=== PATIENT | male | born 1990 | race Caucasian/White ===

== ENCOUNTER 2016-12-02 20:21 | Emergency (ER) | payer OTHER ==
[~2016-12-02] VITALS: Ht 182.9 cm; Wt 110.0 kg
[2016-12-02 20:43] VITALS: Ht 182.9 cm; Wt 110.0 kg
[2016-12-02] MEDS ORDERED: KETOROLAC 60 MG INJ IM STA (22:25)
--- NOTE | 2016-12-02 22:25 | ERD ---
ER Documentation Chief Complaint Date/Time DATE: 12/02/16 TIME: 22:15 Chief Complaint walked into er co [facility] earlier today co lower back pain HPI 26 y/o male(accompanied by his friend) )who presents to ED for lower back pain that radiates to right lower extremity. Stated that he fell from a ladder about 5 feet at around 7 am that "landed on my back." Pain was described as sharp that radiates to right lower extremity. Denies headache, head injury, loss of consciousness, dizziness, blurry vision, changes in vision, photophobia, facial pain, ear pain, throat pain, difficulty swallowing, neck pain, shoulder pain, chest pain, cough, hemoptysis, abdominal pain, loss of appetite, nausea, vomiting, hematochezia, diarrhea, constipation, urinary symptoms, bladder and bowel incontinences, extremity weakness, extremity tenderness, numbness or tingling sensation, difficulty walking, recent travel, recent exposure to illness, recent antibiotic use in the last 3 months, fever, chills. Allergy: NKA PMH: Denies Medications: Denies Surgery: Denies Family history: Denies family history of cardiac disease. 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 Occasionally drinks alcoholic beverages. Denies smoking, use of illegal drugs. ROS All systems reviewed and are negative except as per history of present illness. Medications Home Meds Active Scripts Cyclobenzaprine Hcl* (Cyclobenzaprine Hcl*) 10 Mg Tablet, 10 MG PO TID, #15 TAB Prov:PASILABAN,KLAR F 12/02/16 Ibuprofen* (Motrin*) 800 Mg Tab, 800 MG PO Q6H Y for PAIN AND OR ELEVATED TEMP, #30 TAB Prov:PASILABAN,KLAR F 12/02/16 Allergies Allergies: Coded Allergies: No Known Allergy (Unverified , 12/02/16) PMhx/Soc Medical and Surgical Hx: pt denies Medical Hx History of Surgery: Yes (R ANKLE, APPY) Hx Alcohol Use: Yes (OCCASIONAL) Hx Substance Use: No Hx Tobacco Use: No Smoking Status: Never smoker Physical Exam Vitals Vital Signs Date Time Temp Pulse Resp B/P Pulse Ox O2 Delivery O2 Flow Rate FiO2 12/02/16 23:59 90 16 146/93 96 12/02/16 20:43 97.8 80 18 165/87 99 Physical Exam CONSTITUTIONAL: Well-appearing; well-nourished; in no apparent distress. HEAD: Normocephalic; atraumatic. EYES: Conjunctiva clear, sclera non-icteric, EOM intact. PERRL Ears: Hearing intact. EACs clear, TMs non-bulging, non-inflamed, translucent & mobile, ossicles normal appearance, No obstructions, no erythema, no discharges Nose: No obstructions. No polyps. No external lesions. Mucosa non-inflamed. No external lesions, septum and turbinates normal. No rhinorrhea. No discharges. Frontal sinus is non-tender to palpation. Maxillary sinus is non-tender to palpation. MOUTH: Moist mucous membranes, no lesion, no obstructions, no vesicles, no thrush, patent airway Throat: Uvula in midline. Right tonsil is +1 with no erythema, no exudate. Left tonsil is +1 with no erythema, no exudate. Tolerating secretions well. Good gag reflex. Patent airway. Neck: Supple, without lesions, bruits, or adenopathy. No mass. Thyroid non- enlarged and non-tender to palpation. CHEST: Symmetrical chest. Respirations even and not labored. No retractions noted. CARDIOVASCULAR: Normal S1, S2. RRR. No murmurs, gallops. RESPIRATORY: Normal chest excursion with respiration; breath sounds clear and equal bilaterally; no wheezes, rhonchi, or rales. Breathing even and unlabored. Speaking in clear, full, and complete sentences w/ ease. ABDOMEN: Normal bowel sounds normal. Soft, round, non-distended, non-guarding, no tenderness, no rebound, no organomegaly, no masses, no pulsating abdominal mass. No hernia. No peritoneal signs. : No CVA tenderness. BACK: Symmetrical shoulder. Spine is midline without deformity, tenderness. No evidence of trauma or deformity. PELVIS: Stable pelvis. No evidence of trauma or deformity. MUSCULOSKELETAL: Normal gait and station. No misalignment, asymmetry, crepitation, defects, tenderness, masses, effusions, decreased range of motion, instability, atrophy or abnormal strength or tone in the head, neck, spine, ribs , pelvis or extremities. Positive on right straight leg test. Negative on straight leg test. Good and full range of motion of neck and spine with mild discomfort to lumbar area. No calf tenderness. NEUROVASCULAR: Distal pulses are present. Pedal pulse are present, equal, and normal. Capillary refills are < 2 seconds. NEUROLOGIC: Alert and oriented x4. Speaks full and clear sentences. Cranial Nerves II-XII normal. Sensation to pain, touch, and proprioception normal. Grossly unremarkable. No neurologic deficits. Romberg test is negative. PSYCHOLOGICAL: The patients mood and manner are appropriate. No hallucinations , delusions. Not SI. Not HI. Has the capacity to decide for self SKIN: Normal for age and ethnicity; warm; dry; good turgor; no apparent lesions or exudates. No rashes, hives, discoloration. Intact. Results 24 hrs Current Medications Medications (Trade) Dose Ordered Sig/Alexandro Route PRN Reason Start Time Stop Time Status Last Admin Dose Admin Ketorolac Tromethamine (Toradol) 60 mg ONCE STAT IM 12/02/16 22:25 12/02/16 22:37 DC Acetaminophen/ Hydrocodone Bitart ([place] (10/325)) 1 tab ONCE ONCE PO 12/02/16 23:00 12/02/16 23:01 DC 12/02/16 22:53 Procedures/MDM Examination: Please see physical examination. Disease process, medical treatment was explained to the patient and family member. They verbalized understanding and agreed with the diagnostic tests, medical treatment, and follow-up care. Radiology: CT Lumbar spine Impression: 1. No fracture or subluxation. 2. No spinal canal stenosis. 3. Mild to moderate left neural foraminal narrowing at L5-S1. Treatment: [place]. Re-evaluation: Relieved of pain. No neurovascular deficits. No neurological deficits. Consultation: None. Differential diagnosis: fracture versus contusion versus sprain versus low back strain versus low back pain versus sciatica Medical decision making: Medications prescribed are the following: Motrin. Flexeril Patient and family member are made aware of the side effects and adverse reactions of the medications prescribed. Instructed on when to seek emergent and medical attention in case allergic/anaphylactic reactions or severe side effects and or adverse reactions to medications. Patient and family member verbalized understanding. Patient instructed Instructed to follow-up with his PCP in 24-48 hours. Instructed to Call 911 for chest pain, shortness of breath. Advised to come back here in ED as soon as possible for severity of symptoms which includes but not limited to: any new symptoms; shortness of breath/difficulty of breathing; cardiovascular changes; severe gastrointestinal symptoms; signs and symptoms of bleeding and or infection; signs of compartment syndrome/neurovascular changes; neurological changes/deficits. Patient and family member verbalized understanding. Upon discharge, patient is alert and oriented x 4, speaks full and clear sentences, denies pain, has no neurological deficits, has no neurovascular deficits, difficulty of breathing. Breathing even and unlabored. Lung sounds are clear to auscultation. Not in distress. Appears comfortable. Ambulatory with steady gait. Appears satisfied with care provided here in ED. Departure Diagnosis: Primary Impression: Fall Encounter type: initial encounter Qualified Code: W19.XXXA - Fall, initial encounter Additional Impression: Sciatica Laterality: right Qualified Code: M54.31 - Sciatica of right side Condition: Stable Additional Instructions: Follow-up with PCP in 24-48 hours. Verbalized understanding and agreed with follow-up care. MIRNA NICOLE Dec 02, 2016 22:25
[2016-12-02] MEDS ORDERED: HYDROCODONE/APAP (10/325) TAB PO ONE (23:00)
--- NOTE | 2016-12-02 23:23 | RADRPT ---
PROCEDURE: CT lumbar spine without contrast CLINICAL INDICATION: Low back pain TECHNIQUE: A CT scan of the lumbar spine was performed without intravenous contrast. Coronal and s agittal reformatted images were generated. CTDIvol: 36.21 mGy. DLP: 1281.69 mGy-cm. COMPARISON: None available FINDINGS: There is minimal leftward curvature of the spine. The lumbar lordosis is preserved without spondylo listhesis. The vertebral body heights are maintained. Bone mineralization is normal and there is n o suspicious osseous lesion. No fracture or subluxation is identified. T12-L1 through L4-L5: There is no significant degenerative change. No spinal canal stenosis or neur al foraminal narrowing is seen. L5-S1: There is mild to moderate left neural foraminal narrowing secondary to endplate osteophytosis . The extra spinal soft tissues are unremarkable. IMPRESSION: 1. No fracture or subluxation. 2. No spinal canal stenosis. 3. Mild to moderate left neural foraminal narrowing at L5-S1. RPTAT: HTAR .Jose Baugh MD, Date Time Electronically viewed and signed by .Jose Baugh MD, on 12/02/2016 23:22 .R/
[2016-12-02] MEDS ORDERED: IBUP800T25 PO (23:44)
[2016-12-02] MEDS ORDERED: CYCL-319 PO (23:44)
[2016-12-02 23:59] VITALS: BP 146/93; PULSE 90; RESP 16
== END 2016-12-03 00:01 | disposition home or self-care (01) ==
LOC: FTE 20:21
DX: S39.92XA Unspecified injury of lower back, initial encounter (principal); W11.XXXA Fall on and from ladder, initial encounter; Y92.9 Unspecified place or not applicable
CPT/HCPCS: 72131; J1885

== ENCOUNTER 2018-01-22 14:13 | Emergency (ER) | END 2018-01-22 17:01 | disposition home or self-care (01) ==

== ENCOUNTER 2019-01-09 18:58 | Emergency (ER) | payer OTHER ==
[~2019-01-09] VITALS: Ht 180.3 cm; Wt 127.4 kg
[~2019-01-09 18:58] MED LIST: AMOX1TAB10 PO; CYCL10TA7 PO; HYDR-4011 PO; IBUP800T48 PO
[2019-01-09 19:24] VITALS: Ht 180.3 cm; Wt 127.4 kg
[2019-01-10] MEDS ORDERED: HYDROCODONE/APAP (5/325) TAB PO ONE (01:30)
[2019-01-10] MEDS ORDERED: HYDR-4011 PO (01:32)
[2019-01-10] MEDS ORDERED: IBUP-1542 PO (01:32)
--- NOTE | 2019-01-10 01:40 | ERD ---
ER Documentation Chief Complaint Chief Complaint pt has crush injury to R thumb HPI This is a 28-year-old male with a nonsignificant past medical history presents ED with right thumb injury. Patient states that at work earlier today someone accidentally dropped a wooden beam on his right thumb. Patient has been ex periencing pain and bruising since this incident. Denies tingling, numbness, lack sensation, fever, chills and all other symptoms. A ROS All systems reviewed and are negative except as per history of present illness. Medications Home Meds Active Scripts Ibuprofen* (Motrin*) 600 Mg Tab, 600 MG PO Q6, #30 TAB Prov:KHANH CUNNINGHAM PA-C 01/10/19 Hydrocodone/Acetaminophen ([place] 5-325 Tablet) 1 Each Tablet, 1 TAB PO Q6H PRN for PAIN, #7 TAB Prov:KHANH CUNNINGHAM PA-C 01/10/19 Hydrocodone/Acetaminophen ([place] 5-325 Tablet) 1 Each Tablet, 1 TAB PO Q6H PRN for PAIN, #7 TAB Prov:JENN DICKSON MD 01/22/18 Amoxicillin/Potassium Clav (Amox-Clav 875-125 mg Tablet) 875-125 mg Tab, 1 TAB PO BID for 7 Days, #14 TAB Prov:JENN DICKSON MD 01/22/18 Cyclobenzaprine Hcl* (Cyclobenzaprine Hcl*) 10 Mg Tablet, 10 MG PO TID, #15 TAB Prov:MINRA NICOLE F 12/02/16 Ibuprofen* (Motrin*) 800 Mg Tab, 800 MG PO Q6H PRN for PAIN AND OR ELEVATED TEMP, #30 TAB Prov:MIRNA NICOLE F 12/02/16 Allergies Allergies: Coded Allergies: No Known Allergy (Unverified , 12/02/16) PMhx/Soc History of Surgery: Yes (R ANKLE, APPY) Anesthesia Reaction: No Hx Neurological Disorder: No Hx Respiratory Disorders: No Hx Cardiac Disorders: No Hx Psychiatric Problems: No Hx Miscellaneous Medical Probl: No Hx Alcohol Use: Yes (OCCASIONAL) Hx Substance Use: No Hx Tobacco Use: No Smoking Status: Never smoker FmHx Family History: No diabetes Physical Exam Vitals Vital Signs Date Temp Pulse Resp B/P (MAP) Pulse Ox O2 O2 Flow FiO2 Time Delivery Rate 01/09/19 99.4 92 16 156/104 98 19:24 (121) Physical Exam Physical Exam Vitals signs: Reviewed by me. General: Well developed, well nourished, in no acute distress. Patient is awake and alert. Head: Normocephalic, atraumatic. Respiratory: Clear to auscultation bilaterally with no wheezing, rhonchi, rales, no distress Cardiovascular: RRR, no murmurs, rubs, or gallops MSK: No edema, no unilateral swelling, 5/5 strength Upper Extremity -right Skin: There is some ecchymosis of patient's anterior thumb, Compartments: Soft Motor: Full active range of motion shoulder/elbow/wrist/hand Sensation: Intact shoulder/pinky/middle finger/thumb web space Bones: Moderate tenderness palpation along distal thumb, nontender humerus/elbow/forearm/wrist/hand Snuffbox: Nontender Joints: No effusion Pulses/Perfusion: 2+ radial, Capillary refill < 2 seconds Neurologic: Alert and oriented, moving all extremities, normal speech, no focal weakness, no cerebellar signs. Normal mentation Skin: warm and dry, No rash Psych: Normal mood Results 24 hrs Current Medications Medications Dose Sig/Alexandro Start Time Status Last (Trade) Ordered Route PRN Stop Time Admin Dose Reason Admin 1 tab ONCE ONCE 01/10/19 DC 01/10/19 Acetaminophen PO 01:30 01/10/19 01:19 / 01:31 Hydrocodone Bitart ([place] (5/325)) Procedures/MDM ER COURSE: The patient was stable throughout ED course. I kept the patient and/or family informed of laboratory and diagnostic imaging results throughout the emergency room course. The patient was promptly evaluated and a treatment plan was devised based on H&P and other data. This plan was discussed with the patient who agreed and had no further questions or concerns prior to discharge. MEDICAL DECISION MAKING: This is a 28-year-old male presents ED with right thumb injury that was sustained at work earlier today. X-rays remarkable for a fracture of the distal tuft of the right thumb. Patient was given copies of x-ray findings in the emergency department and he was also placed in an aluminum finger splint. Patient was advised to follow-up with his primary care physician in the next 48 hours regarding the thumb injury. History and physical examination other data not consistent with emergent processes including but not limited to OPEN fracture, dislocation, tendon rupture, ischemia, neurovascular injury, compartment syndrome, septic joint, avascular necrosis, osteomyelitis, necrotiz ing fasciitis, septic joint, septic arthritis, or other emergent conditions. Patient's vitals are stable and can be managed outpatient with close follow-up. Advised patient to follow-up with primary care in the next 48 hours. Return to ED with any worsening symptoms. DISPOSITION PLAN: We discussed follow up with the patient's primary care doctor within 24 to 48 hours. Patient counseled regarding my diagnostic impression and care plan. Prior to discharge all questions answered. Pt agrees with treatment plan and understands strict return precautions. Precautionary instructions provided including instructions to return to the ER if not improving or for any worsening or changing symptoms or concerns. ExitCare instructions provided. Prior to discharge, patients vital signs have been reviewed SPECIALIST FOLLOW UP RECOMMENDED: None Patient has been advised to follow up with primary care in 1-2 days. Disclaimer: Inadvertent spelling and grammatical errors are likely due to EHR/dictation software use and do not reflect on the overall quality of patient care. Also, please note that the electronic time recorded on this note does not necessarily reflect the actual time of the patient encounter. Departure Diagnosis: Primary Impression: Thumb fracture Encounter type: initial encounter Fracture type: closed Phalanx: distal Fracture alignment: nondisplaced Laterality: right Qualified Codes: S62.524A - Nondisplaced fracture of distal phalanx of right thumb, initial encounter for closed fracture Condition: Stable Patient Instructions: Fracture, Finger (Closed), Fracture, Thumb (Child) Referrals: [facility] YOU HAVE RECEIVED A MEDICAL SCREENING EXAM AND THE RESULTS INDICATE THAT YOU DO NOT HAVE A CONDITION THAT REQUIRES URGENT TREATMENT IN THE EMERGENCY DEPARTMENT. FURTHER EVALUATION AND TREATMENT OF YOUR CONDITION CAN WAIT UNTIL YOU ARE SEEN IN YOUR DOCTORS OFFICE WITHIN THE NEXT 1-2 DAYS. IT IS YOUR RESPONSIBILITY TO MAKE AN APPOINTMENT FOR FOLOW-UP CARE. IF YOU HAVE A PRIMARY DOCTOR --you should call your primary doctor and schedule an appointment IF YOU DO NOT HAVE A PRIMARY DOCTOR YOU CAN CALL OUR PHYSICIAN REFERRAL HOTLINE AT IF YOU CAN NOT AFFORD TO SEE A PHYSICIAN YOU CAN CHOSE FROM THE FOLLOWING [facility] [address] [facility] [facility] [address] [facility] [address] [facility] [address] [facility] [address] [facility]. [facility] [address] Additional Instructions: Patient advised to return to the ED immediately for new or worsening symptoms. Patient advised to follow up with primary care provider in the next 24-48 hours. Patient verbalized understanding and agrees with treatment plan and course of action. If patient has no primary care they may follow up with one of the community clinics listed on the following page or one of the options listed below [facility] + [facility] [address] [place] [id number] or [facility] [address] [place] [address] or [facility] [address] [place] [address] KHANH CUNNINGHAM PA-C Jan 10, 2019 01:40
[2019-01-10 02:01] VITALS: BP 169/108; PULSE 85; RESP 18
== END 2019-01-10 02:03 | disposition home or self-care (01) ==
LOC: FTE 18:58
DX: S62.524A Nondisplaced fracture of distal phalanx of right thumb, initial encounter for closed fracture (principal); W20.8XXA Other cause of strike by thrown, projected or falling object, initial encounter; Y92.89 Other specified places as the place of occurrence of the external cause
CPT/HCPCS: 29130; 73140; Z7502; Z7610